=== PATIENT | male | born 1985 | race African-American/Black ===

== ENCOUNTER 2016-10-28 18:03 | Emergency (ER) | payer OTHER ==
[~2016-10-28] VITALS: Ht 165.1 cm; Wt 90.7 kg
[2016-10-28 18:03] VITALS: BP 171/88
[2016-10-28] MEDS ORDERED: DOXYCYCLINE HYCLATE 100 MG TAB PO ONE (19:00)
== END 2016-10-28 19:05 | disposition home or self-care (01) ==
LOC: M ED 18:45
DX: S30.861A Insect bite (nonvenomous) of abdominal wall, initial encounter (principal); W57.XXXA Bitten or stung by nonvenomous insect and other nonvenomous arthropods, initial encounter; Y92.89 Other specified places as the place of occurrence of the external cause; Y93.89 Activity, other specified; Y99.9 Unspecified external cause status

== ENCOUNTER → 2017-01-02 | Outpatient (CLI) | payer OTHER ==
[~2017-01-02] MED LIST: METHACHOLINE KIT (J7674) INH ONE
--- NOTE | 2017-01-02 08:17 | PFTRPT ---
Tech: Sunil FARIA RRT Age: 31 Sex: Male Race: Black Height: 66.00 Inches Weight: 211.00 Lbs BSA: 2.05 Diagnosis: R05 METHACHOLINE CHALLENGE REPORT: ORDERING PROVIDER: ADORE Zavala DATE OF SERVICE: 01/02/17 INTERPRETATION: The study was of excellent technical quality. Under protocol, methacholine was administered. At a dose of 2.5 mg (13.875 CDUs), a 36% decline in the FEV1 was noted. The PC20 of 0.61 is significant. Flow rates did return to baseline post bronchodilator administration. IMPRESSION: Positive methacholine challenge study. MTDD
== END ==
LOC: M CARPUL 07:19
PROVIDERS: ATTEND Nurse Practitioner Adult Health
DX: R05 Cough (principal)